=== PATIENT | female | born 1955 | race Caucasian/White ===

== ENCOUNTER 2016-11-16 05:52 | Day surgery (SDC) | payer OTHER ==
[2016-11-13 17:52] VITALS: BMI 20.7
[2016-11-16] MEDS ORDERED: SODIUM CHLORIDE 0.9% 1,000 ML IV SCH (06:00)
[2016-11-16 06:20] VITALS: BP 120/70; PULSE 55; RESP 18; TEMP 97.8
--- NOTE | 2016-11-16 08:31 | P.PCN ---
Preoperative Diagnosis: Planned Procedure: Electrical cardioversion for atrial fibrillation Procedure Procedure canceled because the patient chemically converted to sinus rhythm on flecainide 100 mg twice daily Postprocedure 12-lead ECG shows sinus rhythm normal MN interval narrow QRS normal ST segments Patient's been taking flecainide for 4 days She is also on ELIQUIS Plan Continue anticoagulation for 2 months then stop, patient has a low GISSELL VASC score Continue flecainide Exercise stress testing on flecainide, not verapamil Follow-up Holter monitor on flecainide Follow-up with Dr. Young thereafter Continue flecainide and verapamil for maintenance of sinus rhythm thereafter Disposition: same day
== END 2016-11-16 08:30 | disposition home or self-care (01) ==
LOC: CATHEP 05:52
PROVIDERS: ATTEND Internal Medicine Clinical Cardiac Electrophysiology
DX: I48.1 Persistent atrial fibrillation (principal); I48.0 Paroxysmal atrial fibrillation; Z79.02 Long term (current) use of antithrombotics/antiplatelets; Z79.899 Other long term (current) drug therapy; Z82.49 Family history of ischemic heart disease and other diseases of the circulatory system; Z87.891 Personal history of nicotine dependence; Z53.8 Procedure and treatment not carried out for other reasons
CPT/HCPCS: 84443; 93005